=== PATIENT | female | born 1955 | race Caucasian/White ===

== ENCOUNTER 2017-12-26 08:58 | Inpatient (IN) | payer OTHER, SELFPAY ==
[2017-12-26] VITALS (8 sets, daily range): BP systolic 130–156; BP diastolic 74–128
[~2017-12-26] VITALS: Ht 160 cm; Wt 45.9 kg
[2017-12-26] MEDS ORDERED: SODIUM CHLORIDE 0.9% 500ML 500 ML IV ONE ×2 (09:33→10:50)
[2017-12-26 09:38] LABS: BASOPHILS % (AUTO) 0.1 % (0.0-5.0); EOSINOPHILS % (AUTO) 0.3 % (0.0-8.0); HEMATOCRIT 34.7 % (36-48); LYMPHOCYTES % (AUTO) 1.8 % (21.0-51.0); MEAN CORPUSCULAR HEMOGLOBIN 28.9 pg (27.0-33.0); MEAN CORPUSCULAR HGB CONC 33.9 g/dL (32.0-36.0); MEAN CORPUSCULAR VOLUME 85.2 fL (79-99); MONOCYTES % (AUTO) 4.6 % (3.0-13.0); NEUTROPHILS % (AUTO) 93.2 % (40.0-77.0); PLATELET COUNT (AUTO) 611 K/uL (130-400); RED BLOOD CELL COUNT(AUTO) 4.07 MIL/uL (4.00-5.50); RED CELL DISTRIBUTION WIDTH 12.7 % (11.0-15.5); WHITE BLOOD COUNT (AUTO) 15.7 K/uL (4.8-10.8)
[2017-12-26 09:53] LABS: ALANINE AMINOTRANSFERASE 29 U/L (12-78); ALBUMIN 2.3 g/dL (3.5-5.0); ASPARTATE AMINOTRANSFERASE 52 U/L (10-37); BILIRUBIN,TOTAL 0.6 mg/dL (0.2-1.0); CARBON DIOXIDE 25 mmol/L (21-32); CHLORIDE 85 mmol/L (101-111); CREATININE 0.6 mg/dL (0.5-1.5); GLOMERULAR FILTR. RATE CALC 107 mL/min (>60); GLUCOSE,RANDOM 89 mg/dL (70-105); LIPASE < 50 U/L (114-286); POTASSIUM 3.4 mmol/L (3.5-5.1); SODIUM SERUM 123 mmol/L (136-145); TOTAL PROTEIN, SERUM 6.9 g/dL (6.0-8.3); UREA NITROGEN, BLOOD 16 mg/dL (7-18)
[2017-12-26] MEDS ORDERED: IOPAMIDOL-370 75 ML VIAL IV ONE (09:58)
[2017-12-26 10:13] LABS: APPEARANCE,URINE CLEAR (CLEAR); BILIRUBIN,URINE SMALL (NEGATIVE); COLOR,URINE YELLOW (YELLOW); GLUCOSE, URINE (UA) NEGATIVE (NEGATIVE); KETONES,URINE >=80 mg/dL (NEGATIVE); LEUKOCYTE ESTERASE ,URINE LARGE (NEGATIVE); NITRATE,URINE NEGATIVE (NEGATIVE); OCCULT BLOOD,URINE LARGE (NEGATIVE); PROTEIN,URINE 30 (NEGATIVE); UROBILINOGEN,URINE 0.2 mg/dL (0.2-1.0)
[2017-12-26 10:25] LABS: BACTERIA,URINE Moderate /HPF (None Seen); RBC,URINE >100 /HPF (0-1); SQUAMOUS EPITHELIAL CELL,UR Moderate /HPF (0-2); WBC,URINE TNTC /HPF (0-1)
[2017-12-26] MEDS ORDERED: ZOSYN 3.375GM+NS 50ML 50 ML IV ONE (10:50)
[2017-12-26] MEDS ORDERED: METRONIDAZOLE 500MG/100ML BAG 100 ML ONE (10:51)
[2017-12-26] MEDS ORDERED: VANCOMYCIN 1GM+NS 250ML 250 ML IV ONE (11:12)
[2017-12-26] MEDS ORDERED: LACTATED RINGERS 1000ML 1,000 ML IV ONE (11:33)
[2017-12-26] MEDS ORDERED: MIDAZOLAM HCL 1 MG/ML 2ML VIAL ONE (11:46)
[2017-12-26] MEDS ORDERED: PROPOFOL 10 MG/ML 20ML VIAL IV ONE (11:47)
[2017-12-26] MEDS ORDERED: FENTANYL CITRATE PF 50 MCG/1 ML 5ML AMP IV ONE (11:47)
[2017-12-26] MEDS ORDERED: ROPIVACAINE 0.5% 5MG/ML 30ML IJ ONE (12:56)
[2017-12-26] MEDS ORDERED: FLUCONAZOLE 200 MG/NS 100 ML 100 ML IV SCH (13:15)
[2017-12-26] MEDS ORDERED: ROCURONIUM BROMIDE 10MG/1ML 5ML VL ONE (13:56)
[2017-12-26] MEDS ORDERED: ONDANSETRON HCL MDV 20ML 2 MG/ML VIAL ONE (13:56)
[2017-12-26] MEDS ORDERED: PHENYLEPHRINE HCL 10 MG/ML 1ML VIAL IV ONE (13:56)
[2017-12-26] MEDS ORDERED: PROPOFOL 1000 MG/100 ML 100 ML IV ONE (14:10)
[2017-12-26] MEDS ORDERED: CEFTAZIDIME 1GM+NS 50ML 50 ML IV SCH (14:15)
[2017-12-26] MEDS ORDERED: PHARMACY COMMUNICATION MISC SCH (14:45)
[2017-12-26] MEDS ORDERED: SODIUM CHLORIDE 0.9% 1000ML 1,000 ML IV SCH (14:45)
[2017-12-26 14:49] LABS: ABG BASE EXCESS -6.4 mmol/L (-2.0-3.0); ABG HCO3 16.4 mmol/L (21.0-28.0); ABG OXYGEN SATURATION 99.4 % (95.0-99.0); ABG PCO2 26 mmHg (32-45)
[2017-12-26] MEDS ORDERED: FLUCONAZOLE 200 MG/NS 100 ML 50 ML IV SCH (15:00)
[2017-12-26] MEDS ORDERED: COMPOUND IV MISC 1 EACH IVSOLN MISC PRN (15:00)
[2017-12-26] MEDS ORDERED: MORPHINE SULFATE 4 MG/1ML SYG ONE (15:34)
[2017-12-26] MEDS ORDERED: MORPHINE SULFATE 4 MG/1ML SYG IV PRN (15:45)
[2017-12-26] MEDS ORDERED: POTASSIUM CHLORIDE 10% ELIXIR 20 MEQ/15 ML UDCUP PO PRN (16:00)
[2017-12-26] MEDS ORDERED: LIDOCAINE HCL-MPF 1% 2ML VIAL IVP PRN (16:00)
[2017-12-26] MEDS ORDERED: POTASSIUM CHLORIDE 20 MEQ ERTAB PO PRN (16:00)
[2017-12-26] MEDS ORDERED: POTASSIUM CHLORIDE 20MEQ/100ML 100 ML IV PRN (16:00)
[2017-12-26] MEDS ORDERED: GLUCAGON 1MG KIT 1 MG ML IM PRN (16:00)
[2017-12-26] MEDS: SODIUM CHLORIDE 0.9% 1000ML 1,000 ML IV SCH (16:00)
[2017-12-26] MEDS ORDERED: DEXTROSE 50%-WATER 50 ML DISP.SYRIN IV PRN (16:00)
[2017-12-26] MEDS: CEFTAZIDIME PENTAHYDRATE 1 GM/VIAL IVP SCH ×2 (16:01→22:27)
[2017-12-26] MEDS ORDERED: ASPI-555 PO (16:10)
[2017-12-26] MEDS: METRONIDAZOLE 500MG/100ML BAG 100 ML IV SCH ×2 (16:11→19:56)
[2017-12-26] MEDS: IPRATROPIUM/ALBUTEROL SULFATE 3 ML SOLUTION IH SCH ×2 (18:09→23:21)
[2017-12-26] MEDS: PROPOFOL 1000 MG/100 ML IV PRN (21:13)
[2017-12-27] VITALS (20 sets, daily range): BP systolic 127–157; BP diastolic 64–91
[2017-12-27] MEDS: METRONIDAZOLE 500MG/100ML BAG 100 ML IV SCH ×4 (02:16→21:39)
[2017-12-27] MEDS: SODIUM CHLORIDE 0.9% 1000ML 1,000 ML IV SCH (02:16)
[2017-12-27] MEDS: PROPOFOL 1000 MG/100 ML IV PRN (02:18)
[2017-12-27 03:26] LABS: HEMATOCRIT 30.7 % (36-48); MEAN CORPUSCULAR HEMOGLOBIN 29.4 pg (27.0-33.0); MEAN CORPUSCULAR HGB CONC 34.3 g/dL (32.0-36.0); MEAN CORPUSCULAR VOLUME 85.7 fL (79-99); PLATELET COUNT (AUTO) 557 K/uL (130-400); RED BLOOD CELL COUNT(AUTO) 3.59 MIL/uL (4.00-5.50); RED CELL DISTRIBUTION WIDTH 12.6 % (11.0-15.5); WHITE BLOOD COUNT (AUTO) 12.3 K/uL (4.8-10.8)
[2017-12-27 03:39] LABS: CREATININE 0.5 mg/dL (0.5-1.5); MAGNESIUM 1.6 mg/dL (1.80-2.40); PHOSPHORUS 3.5 mg/dL (2.5-4.9); POTASSIUM 4.1 mmol/L (3.5-5.1)
[2017-12-27] MEDS: CEFTAZIDIME PENTAHYDRATE 1 GM/VIAL IVP SCH ×3 (06:08→22:58)
[2017-12-27] MEDS: IPRATROPIUM/ALBUTEROL SULFATE 3 ML SOLUTION IH SCH ×4 (06:34→23:34)
[2017-12-27] MEDS: FLUCONAZOLE 200 MG/NS 100 ML 50 ML IV SCH (08:43)
[2017-12-27 09:08] LABS: ABG BASE EXCESS -2.3 mmol/L (-2.0-3.0); ABG HCO3 21.5 mmol/L (21.0-28.0); ABG OXYGEN SATURATION 98.8 % (95.0-99.0); ABG PCO2 34 mmHg (32-45)
[2017-12-27] MEDS ORDERED: LACTATED RINGERS 1000ML 1,000 ML IV STA (11:54)
[2017-12-27] MEDS ORDERED: TRAMADOL HCL 50 MG TABLET PO PRN (12:00)
[2017-12-27] MEDS ORDERED: MEPERIDINE-PF 25 MG/ML SYG IVP PRN (12:00)
[2017-12-27] MEDS: LACTATED RINGERS 1000ML 1,000 ML IV SCH (12:51)
[2017-12-27] MEDS ORDERED: MAGNESIUM 2GM PREMIX 50ML 50 ML IV PRN (13:15)
[2017-12-27] MEDS: METOPROLOL TARTRATE 25 MG TAB PO SCH ×2 (14:57→21:45)
[2017-12-27] MEDS ORDERED: ACETAMINOPHEN 325 MG TAB PO PRN (16:30)
[2017-12-27] MEDS ORDERED: MEPERIDINE-PF 50 MG/ML SYG ONE (19:03)
[2017-12-27] MEDS ORDERED: MEPERIDINE HCL/PF 25 MG/ML 1ML VIAL IVP PRN (20:16)
[2017-12-28] MEDS: METRONIDAZOLE 500MG/100ML BAG 100 ML IV SCH ×4 (01:49→20:31)
[2017-12-28] MEDS: LACTATED RINGERS 1000ML 1,000 ML IV SCH ×3 (01:49→12:06)
[2017-12-28] MEDS ORDERED: MEPERIDINE-PF 50 MG/ML SYG ONE (03:05)
[2017-12-28] MEDS ORDERED: ONDANSETRON HCL MDV 20ML 2 MG/ML VIAL IVP PRN (04:30)
[2017-12-28] MEDS ORDERED: ONDANSETRON HCL MDV 20ML 2 MG/ML VIAL ONE (04:34)
[2017-12-28 05:32] VITALS: BP 156/83
[2017-12-28] MEDS: CEFTAZIDIME PENTAHYDRATE 1 GM/VIAL IVP SCH ×3 (06:22→23:24)
[2017-12-28] MEDS: IPRATROPIUM/ALBUTEROL SULFATE 3 ML SOLUTION IH SCH ×3 (06:27→18:28)
[2017-12-28 08:00] VITALS: BP 180/91
[2017-12-28] MEDS: M.V.I. IV [ADULT] 10 ML, FOLIC ACID 1 MG, THIAMINE HCL 100 MG in SODIUM CHLORIDE 0.9% 1... IV SCH (09:20)
[2017-12-28] MEDS: METOPROLOL TARTRATE 25 MG TAB PO SCH ×3 (09:21→20:31)
[2017-12-28] MEDS: FLUCONAZOLE 200 MG/NS 100 ML 50 ML IV SCH (09:50)
[2017-12-28 11:44] VITALS: BP 163/90
[2017-12-28] MEDS ORDERED: HYDRALAZINE HCL 20 MG/ML VIAL IM PRN (12:45)
[2017-12-28 16:01] VITALS: BP 194/101
[2017-12-28] MEDS: LISINOPRIL 10 MG TABLET PO SCH (16:46)
[2017-12-28] MEDS: HYDRALAZINE HCL 20 MG/ML VIAL IV PRN (16:48)
[2017-12-28 20:00] VITALS: BP 175/89
[2017-12-28 23:43] VITALS: BP 158/85
[2017-12-29] MEDS: LACTATED RINGERS 1000ML 1,000 ML IV SCH (00:07)
[2017-12-29] MEDS: IPRATROPIUM/ALBUTEROL SULFATE 3 ML SOLUTION IH SCH ×5 (00:46→17:57)
[2017-12-29] MEDS: METRONIDAZOLE 500MG/100ML BAG 100 ML IV SCH ×4 (01:52→20:55)
[2017-12-29 04:00] VITALS: BP 159/88
[2017-12-29] MEDS: CEFTAZIDIME PENTAHYDRATE 1 GM/VIAL IVP SCH ×3 (06:20→23:17)
[2017-12-29] MEDS: HYDRALAZINE HCL 20 MG/ML VIAL IV PRN (06:20)
[2017-12-29 08:20] VITALS: BP 134/62
[2017-12-29] MEDS: LISINOPRIL 10 MG TABLET PO SCH (08:57)
[2017-12-29] MEDS: METOPROLOL TARTRATE 25 MG TAB PO SCH ×3 (08:57→20:55)
[2017-12-29] MEDS: FLUCONAZOLE 200 MG/NS 100 ML 50 ML IV SCH (08:59)
[2017-12-29] MEDS: M.V.I. IV [ADULT] 10 ML, FOLIC ACID 1 MG, THIAMINE HCL 100 MG in SODIUM CHLORIDE 0.9% 1... IV SCH (09:53)
[2017-12-29 12:21] VITALS: BP 116/61
[2017-12-29 16:46] VITALS: BP 125/66
[2017-12-29 19:33] VITALS: BP 151/75
[2017-12-29 23:18] VITALS: BP 150/68
[2017-12-30] MEDS ORDERED: ACETAMINOPHEN 325 MG TAB PO PRN
[2017-12-30] MEDS: METRONIDAZOLE 500MG/100ML BAG 100 ML IV SCH ×2 (02:34→08:10)
[2017-12-30 03:22] VITALS: BP 153/79
[2017-12-30 05:52] LABS: HEMATOCRIT 30.1 % (36-48); MEAN CORPUSCULAR HEMOGLOBIN 29.7 pg (27.0-33.0); MEAN CORPUSCULAR HGB CONC 35.2 g/dL (32.0-36.0); MEAN CORPUSCULAR VOLUME 84.5 fL (79-99); PLATELET COUNT (AUTO) 524 K/uL (130-400); RED BLOOD CELL COUNT(AUTO) 3.56 MIL/uL (4.00-5.50); RED CELL DISTRIBUTION WIDTH 12.5 % (11.0-15.5); WHITE BLOOD COUNT (AUTO) 11.1 K/uL (4.8-10.8)
[2017-12-30] MEDS: IPRATROPIUM/ALBUTEROL SULFATE 3 ML SOLUTION IH SCH ×2 (06:00)
[2017-12-30 06:14] LABS: ALBUMIN 1.5 g/dL (3.5-5.0); BILIRUBIN,TOTAL 0.3 mg/dL (0.2-1.0); CREATININE 0.3 mg/dL (0.5-1.5); POTASSIUM 3.2 mmol/L (3.5-5.1); TOTAL PROTEIN, SERUM 4.6 g/dL (6.0-8.3)
[2017-12-30] MEDS: CEFTAZIDIME PENTAHYDRATE 1 GM/VIAL IVP SCH (06:17)
[2017-12-30 08:00] VITALS: BP 159/78
[2017-12-30] MEDS: METOPROLOL TARTRATE 25 MG TAB PO SCH (08:13)
[2017-12-30] MEDS: LISINOPRIL 10 MG TABLET PO SCH (08:14)
[2017-12-30] MEDS ORDERED: MULTIVITAMIN WITH MINERALS TABLET PO SCH (09:00)
[2017-12-30] MEDS: FLUCONAZOLE 200 MG/NS 100 ML 50 ML IV SCH (09:57)
[2017-12-30 12:00] VITALS: BP 158/67
== END 2017-12-30 14:10 | disposition home or self-care (01) | DRG 330 ==
LOC: EDH 08:58 → EDHIP 08:59 → 2BH 13:15 → 2DH 12-27 13:57 → 2BH 12-27 14:01 → 3AH 12-27 18:12
PROVIDERS: ADMIT Surgery; ATTEND Surgery
PROC: 0BH17EZ Insertion of Endotracheal Airway into Trachea, Via Natural or Artificial Opening (ICD-10-PCS; 2017-12-26)
PROC: 0DTN0ZZ Resection of Sigmoid Colon, Open Approach (ICD-10-PCS; principal; 2017-12-26 11:30)
PROC: 5A1935Z Respiratory Ventilation, Less than 24 Consecutive Hours (ICD-10-PCS; 2017-12-26 11:30)
DX: K57.80 Diverticulitis of intestine, part unspecified, with perforation and abscess without bleeding (principal); E46 Unspecified protein-calorie malnutrition; R64 Cachexia; Z68.1 Body mass index [BMI] 19.9 or less, adult; D64.9 Anemia, unspecified; F17.200 Nicotine dependence, unspecified, uncomplicated; J44.9 Chronic obstructive pulmonary disease, unspecified; Z93.3 Colostomy status
CPT/HCPCS: 36415; 36600; 71045; 74177; 80048; 80053; 81001; 82803; 82948; 83605; 83690; 83735; 84100; 84132; 85025; 85027; 87040; 88307; 93005; 94002; 94003; 94150; 94640; 94664; A4218; A4344; J0360; J0713; J1450; J2175; J2250; J2270; J2370; J2543; J2704; J2795; J3010; J3370; J3411; J3480; J3490; J7030; J7040; J7120; Q9967

== ENCOUNTER 2018-01-01 11:40 | Emergency (ER) | payer OTHER, SELFPAY ==
[~2018-01-01 11:40] MED LIST: ASPI-555 PO
[2018-01-01 12:38] LABS: BASOPHILS % (AUTO) 0.4 % (0.0-5.0); EOSINOPHILS % (AUTO) 1.1 % (0.0-8.0); HEMATOCRIT 25.8 % (36-48); MEAN CORPUSCULAR HEMOGLOBIN 30.6 pg (27.0-33.0); MONOCYTES % (AUTO) 5.3 % (3.0-13.0); NEUTROPHILS % (AUTO) 85.2 % (40.0-77.0); PLATELET COUNT (AUTO) 506 K/uL (130-400); RED BLOOD CELL COUNT(AUTO) 3.03 MIL/uL (4.00-5.50); RED CELL DISTRIBUTION WIDTH 12.5 % (11.0-15.5); WHITE BLOOD COUNT (AUTO) 15.2 K/uL (4.8-10.8)
[2018-01-01 12:42] LABS: ALBUMIN 1.9 g/dL (3.5-5.0); BILIRUBIN,DIRECT 0.1 mg/dL (0.0-0.3); BILIRUBIN,TOTAL 0.3 mg/dL (0.2-1.0); CREATININE 0.4 mg/dL (0.5-1.5); POTASSIUM 3.1 mmol/L (3.5-5.1); TOTAL PROTEIN, SERUM 5.3 g/dL (6.0-8.3)
[2018-01-01 12:59] LABS: B-TYPE NATRIURETIC PEPTIDE 87 pg/mL (0-100)
[2018-01-01 13:20] LABS: INR 1.06 (0.85-1.15); PARTIAL THROMBOPLASTIN TIME 23.6 SEC (26.3-35.5); PROTHROMBIN TIME 11.1 SEC (9.6-11.6)
[2018-01-01 13:46] LABS: APPEARANCE,URINE Clear (CLEAR); BILIRUBIN,URINE Negative (NEGATIVE); COLOR,URINE Yellow (YELLOW); GLUCOSE, URINE (UA) Negative (NEGATIVE); KETONES,URINE Negative (NEGATIVE); LEUKOCYTE ESTERASE ,URINE Large (NEGATIVE); NITRATE,URINE Negative (NEGATIVE); OCCULT BLOOD,URINE Trace (NEGATIVE); PROTEIN,URINE Negative (NEGATIVE); UROBILINOGEN,URINE 0.2 mg/dL (0.2-1.0)
[2018-01-01 13:58] LABS: BACTERIA,URINE Rare /HPF (None Seen); RBC,URINE 0-1 /HPF (0-1); SQUAMOUS EPITHELIAL CELL,UR Rare /HPF (0-2); WBC,URINE 26-50 /HPF (0-1)
[2018-01-01] MEDS ORDERED: FUROSEMIDE 10 MG/ML 4ML VIAL ONE (14:25)
[2018-01-01] MEDS ORDERED: ALBUMIN (HUMAN) 25% 100 ML IV ONE (14:26)
[2018-01-01] MEDS ORDERED: CEFTRIAXONE SODIUM 1 GM ONE (14:26)
[2018-01-01] MEDS ORDERED: SODIUM CHLORIDE 0.9% 100 ML IV ONE (14:26)
== END 2018-01-01 15:23 | disposition home or self-care (01) ==
LOC: EDH 11:40
DX: R60.0 Localized edema (principal); N39.0 Urinary tract infection, site not specified; Z79.899 Other long term (current) drug therapy; Z72.0 Tobacco use
CPT/HCPCS: 36415; 71045; 80048; 80076; 81001; 83880; 84484; 85025; 85610; 85730; 93005; 93970; 96374; 96375; 99285; J0696; J1940; P9046

== ENCOUNTER → 2018-05-31 | Outpatient (CLI) | payer OTHER | END | disposition home or self-care (01) | LOC: RAH 08:01 | PROVIDERS: ATTEND Family Medicine | DX: Z12.31 Encounter for screening mammogram for malignant neoplasm of breast (principal) | CPT/HCPCS: 77067 ==

== ENCOUNTER → 2019-06-06 | Outpatient (CLI) | payer OTHER | END | disposition home or self-care (01) | LOC: RAH 11:15 | PROVIDERS: ATTEND Family Medicine | DX: Z12.31 Encounter for screening mammogram for malignant neoplasm of breast (principal); F17.200 Nicotine dependence, unspecified, uncomplicated; Z93.3 Colostomy status | CPT/HCPCS: 77067 ==

== ENCOUNTER → 2020-12-15 | Outpatient (CLI) | payer OTHER ==
[~2020-12-15] MED LIST changes: -ASPI-555 PO; +ASPI-556 PO
== END | disposition home or self-care (01) ==
LOC: RAH 08:39
PROVIDERS: ATTEND Family Medicine
DX: Z12.31 Encounter for screening mammogram for malignant neoplasm of breast (principal)
CPT/HCPCS: 77067

== ENCOUNTER → 2023-01-16 | Outpatient (CLI) | payer OTHER | END | disposition home or self-care (01) | LOC: RAH 08:22 | PROVIDERS: ATTEND Family Medicine | DX: Z12.31 Encounter for screening mammogram for malignant neoplasm of breast (principal) | CPT/HCPCS: 77067 ==